=== PATIENT | male | born 1965 | race Caucasian/White ===

== ENCOUNTER 2022-06-28 20:17 | Emergency (ER) | payer OTHER, SELFPAY ==
[2022-06-28] MEDS ORDERED: Cyclobenzaprine 10 MG TAB ONE (20:37)
[2022-06-28] MEDS ORDERED: Ibuprofen 800 MG TAB ONE (20:37)
== END 2022-06-28 20:55 | disposition home or self-care (01) ==
LOC: NAV ERS 20:17
DX: S16.1XXA Strain of muscle, fascia and tendon at neck level, initial encounter (principal); S00.93XA Contusion of unspecified part of head, initial encounter; I10 Essential (primary) hypertension; Z79.899 Other long term (current) drug therapy; W22.8XXA Striking against or struck by other objects, initial encounter
CPT/HCPCS: 99283